=== PATIENT | female | born 1990 | race Caucasian/White ===

== ENCOUNTER 2020-01-15 15:27 | Emergency (ER) | payer OTHER, SELFPAY ==
[2020-01-15 15:45] VITALS: BP 126/84; PULSE 93; RESP 18; TEMP 37; O2SAT 100
--- NOTE | 2020-01-15 15:59 | ED.ANIMALBIT ---
HPI - Animal Bite General Chief Complaint: Animal Bite Stated Complaint: animal bite Time Seen by Provider: 01/15/20 15:49 Source: patient and RN notes reviewed Mode of arrival: ambulatory Limitations: no limitations History of Present Illness HPI narrative: Patient presents today complaining of a dog bite to her left elbow that was sustained approximately 2 hours prior to exam. Bite occurred in [facility] at an apartment complex. States she was holding her puppy when another dog bit her. She is up-to-date on her tetanus vaccine. Denies any current pain. She has tried no OTC treatment prior to arrival. complaint: animal bite Related Data Home Medications Medication Instructions Recorded Confirmed drospirenone-ethinyl estradiol 1 tablet DAILY 01/15/20 01/15/20 [Mike ([id number])] Review of Systems Review of Systems: Narrative: CONSTITUTIONAL: Denies body aches, fever, chills, or sweats. EYES: Denies visual changes, redness, or discharge. ENT: Denies rhinorrhea, congestion, sore throat, or otalgia. CARDIOVASCULAR: Denies chest pain, palpitations, or edema. RESPIRATORY: Denies cough or dyspnea. GASTROINTESTINAL: Denies abdominal pain, nausea, vomiting, or diarrhea. GENITOURINARY: Denies dysuria or hematuria. SKIN: Denies rash, itching. + Dog bite to left elbow MUSCULOSKELETAL: Denies back pain, joint pain, or myalgia. NEUROLOGIC: Denies headache, numbness, tingling, or weakness. PSYCH: Denies depression or anxiety. PMFSH Social History Social History Gender identity (if verbalized by the patient): Female Comments At time of signature, I have reviewed and agree with nursing past medical, surgical, social and family history unless otherwise noted. Please see nursing chart for further information. There is no relevant family history pertinent to the presenting complaint Exam Narrative: Exam Narrative: GENERAL: Well-appearing, well-nourished, and in no acute distress. HEAD: Normocephalic, atraumatic. EYES: EOMI. No redness or drainage. Conjunctivae normal. ENT: Mucous membranes pink and moist. NECK: Normal AROM. CHEST: No respiratory distress. EXTREMITIES: Normal range of motion. No edema. SKIN: Warm, dry, no rash. Capillary refill normal. Normal skin turgor. 2 subcentimeter very superficial linear abrasions to the outer left elbow. Larger area of ecchymosis to the inner and outer elbow consistent with upper and lower tooth mann from a dog bite. No active bleeding. Full AROM of the elbow. Distal sensation intact. Capillary refill normal. Radial pulse normal. NEURO: No focal deficits. Alert and oriented x3. Gait steady. PSYCH: Normal affect. No signs of depression or anxiety. Course Vital Signs Vital signs: Vital Signs Temperature 98.6 F 01/15/20 15:45 Pulse Rate 93 01/15/20 15:45 Respiratory Rate 18 01/15/20 15:45 Blood Pressure 126/84 01/15/20 15:45 Pulse Oximetry 100 01/15/20 15:45 Temperature 98.6 F 01/15/20 15:45 Pulse Rate 93 01/15/20 15:45 Respiratory Rate 18 01/15/20 15:45 Blood Pressure 126/84 01/15/20 15:45 Pulse Oximetry 100 01/15/20 15:45 Reviewed. Pt has been instructed to follow up with her PCP regarding her elevated blood pressure today. MDM - Animal Bite MDM Narrative Medical decision making narrative: Wound has been cleaned and dressed with Band-Aid. Anticipatory guidance given to watch for infection. Instructed to contact [facility] and also the dog's production support specialist for vaccine records. If she cannot confirm that the dog has been vaccinated, she needs to decide whether or not she wants to start her rabies course within the next 7 days, and follow-up at the health department if she decides she would like to. Differential Diagnosis Differential diagnosis: Likely bite by animal, dog bite and other (Skin avulsion) Critical Care Time Critical Care Time Critical Care Time: No Discharge Plan Discharge Clinical Impression: D
== END 2020-01-15 16:06 | disposition home or self-care (01) ==
PROVIDERS: Emergency Provider Nurse Practitioner
DX: S51.052A Open bite, left elbow, initial encounter (principal); W54.0XXA Bitten by dog, initial encounter
CPT/HCPCS: 99202; G0463